=== PATIENT | male | born 2000 | race Two or more races ===

== ENCOUNTER → 2019-01-13 | Outpatient (CLI) | payer OTHER ==
[~2019-01-13] MED LIST: ALLEGRA ALLERG180 MG PO; AMOX1TAB12 PO; GILTUSS TR TAB1 EACH PO; KEPPRA500 MG PO
== END | disposition home or self-care (01) ==
LOC: RAD 15:45
DX: R22.2 Localized swelling, mass and lump, trunk (principal)